=== PATIENT | female | born 2005 | race Caucasian/White ===

== ENCOUNTER 2023-05-12 19:09 | Emergency (ER) | payer BC, SELFPAY ==
[2023-05-12 19:35] VITALS: BP 122/80; PULSE 97; RESP 16; TEMP 36.2; O2SAT 99
--- NOTE | 2023-05-12 19:38 | PC.NURSE ---
Pt unable to provide urine sample at this time.
[2023-05-12 19:58] LABS: Basophils Absolute Auto 0.1 K/mm3 (0.0-0.1); Basophils Percent Auto 0.5 % (0.2-1.2); Eosinophils Percent Auto 0.1 % (0-4.4); Hematocrit 38.1 % (37.0-47.0); Immature Granulocyte Absolute 0.03 K/mm3 (0.00-0.031); Immature Granulocyte Percent A 0.3 % (0-0.5); Lymphocytes Absolute Auto 0.81 K/mm3 (0.9-3.2); Lymphocytes Percent Auto 7.9 % (18.3-44.2); Mean Corpuscular HGB Conc 31.5 g/dl (32-36); Mean Corpuscular Hemoglobin 25.3 pg (26-34); Mean Corpuscular Volume 80.4 fl (80-100); Mean Platelet Volume 9.5 fl (7.4-10.4); Monocytes Absolute Auto 0.6 K/mm3 (0.1-0.6); Monocytes Percent Auto 6.1 % (2.6-8.5); Neutrophils Absolute Auto 8.7 K/mm3 (1.3-6.7); Neutrophils Percent Auto 85.1 % (45.5-73.1); Platelet Count Result 317 k/mm3 (150-375); Red Blood Count 4.74 M/mm3 (4.2-5.4); Red Cell Distribution Width 14.1 % (11.5-14.5); White Blood Count 10.2 K/mm3 (4.5-10.0)
[2023-05-12 20:14] LABS: Alanine Aminotransferase 11 U/L (6-35); Albumin Level 4.1 g/dL (3.7-5.6); Alkaline Phosphatase 119 U/L (45-116); Anion Gap 10 mmol/L (8-16); Aspartate Amino Transferase 30 U/L (14-36); Bilirubin,Total 0.4 mg/dL (0.2-1.3); Blood Urea Nitrogen 6 mg/dL (8-21); Calcium 8.3 mg/dL (8.9-10.7); Carbon Dioxide 20 mmol/L (22-30); Chloride 107 mmol/L (98-107); Estimated CRCL calculation 151 ml/min; Estimated Glomerular Filt Rate > 60; Glucose 96 mg/dL (65-110); Lipase 53 U/L (23-300); Potassium 3.7 mmol/L (3.4-5.0); Sodium 137 mmol/L (134-143)
[2023-05-12 20:37] LABS: Influenza A QL RT-PCR Negative (Negative); Influenza B QL RT-PCR Negative (Negative); RSV RNA, RT-PCR Negative (Negative); SARS-CoV-2 RNA PCR Negative (Negative)
[2023-05-12 21:38] LABS: Appearance Urine Cloudy (Clear); Bacteria Urine Rare /hpf; Bilirubin Urine Negative (Negative); Blood Urine Negative (Negative); Color Urine Yellow (Yellow); Glucose Urine UA Negative (Negative); Ketones Urine 4+ mg/dL (Negative); Leukocyte Esterase Ur Negative LEU/UL (Negative); Nitrate Urine Negative (Negative); Non Pathogenic Casts 0-2; Protein Urine Trace mg/dL (Negative); Specific Grav Ur 1.029 (1.001-1.035); Squamous Epithelial Cell Urine Occasional /hpf (Few); WBC Urine 0-5 /hpf; pH Urine 5.5 (5.0-9.0)
[2023-05-12 21:38] LABS: Magnesium 2.2 mg/dL (1.6-2.3)
[2023-05-12 21:39] LABS: Add Urine Microscopic? YES
[2023-05-12] MEDS: SODIUM CHLORIDE 0.9% IV 1,000 ML 999 ML IV CONT (21:39)
[2023-05-12] MEDS: ONDANSETRON INJ 4 MG/2 ML VIAL IV PUSH (21:40)
--- NOTE | 2023-05-12 21:45 | ED.NAVMDI ---
HPI - Nausea/Vomiting/Diarrhea General Chief complaint: Nausea/Vomiting/Diarrhea Stated complaint: n/v/d Time Seen by Provider: 05/12/23 21:24 Source: patient Mode of arrival: ambulatory Limitations: no limitations History of Present Illness HPI Narrative: This is a 17 year old female that presents to the ER for cold symptoms present over the last couple of days. Reports rhinorrhea, congestion, sore throat, vomiting and diarrhea. Denies fever, or abdominal pain. Related Data Allergies Allergy/AdvReac Type Severity Reaction Status Date / Time No Known Allergies Allergy Verified 05/12/23 21:37 Review of Systems Review of Systems: CONSTITUTIONAL: Denies fever ENT: Reports rhinorrhea, congestion, sore throat RESPIRATORY: Denies cough or dyspnea. GASTROINTESTINAL: Reports nausea, vomiting and diarrhea. Denies abdominal pain All systems reviewed & are unremarkable except as noted in HPI and below PMFSH Past Medical History Medical History (Updated 05/13/23 @ 00:12 by Ines Mccloud PA-C) No active medical problems Social History Social History (Updated 05/12/23 @ 21:48 by Ines Mccloud PA-C) Smoking status: Never smoker Exam Narrative: GENERAL: Well-appearing, well-nourished, and in no acute distress. HEAD: Normocephalic, atraumatic. EYES: EOMI. ENT: Nares clear, no rhinorrhea or epistaxis. Mucous membranes moist. Oropharynx without tonsillar hypertrophy exudate or other lesions. Bilateral TMs pearly tatum non-bulging NECK: Supple. No adenopathy or masses. CHEST: Clear to auscultation. No respiratory distress. No wheezes rales or rhonchi HEART: Regular rate and rhythm. No murmur heard. Normal peripheral pulses. ABDOMEN: Soft, nontender, nondistended, normal active bowel sounds. EXTREMITIES: Normal range of motion. No edema. SKIN: Warm, dry, no rash. NEURO: No focal deficits. Alert and oriented x3. PSYCH: Normal mood and affect Course Course Emergency Course: Patient updated on her workup. Able to tolerate PO challenge Vital Signs Vital signs: Vital Signs Temperature 97.2 F L 05/12/23 19:35 Pulse Rate 97 05/12/23 19:35 Respiratory Rate 16 05/12/23 19:35 Blood Pressure 122/80 05/12/23 19:35 Pulse Oximetry 99 02/12/24 19:35 Oxygen Delivery Room Air 05/12/23 19:35 Temperature 97.2 F L 05/12/23 19:35 Pulse Rate 97 05/12/23 19:35 Respiratory Rate 16 05/12/23 19:35 Blood Pressure 122/80 05/12/23 19:35 Pulse Oximetry 99 05/12/23 19:35 Oxygen Delivery Room Air 05/12/23 19:35 MDM - Nausea/Vomiting/Diarrhea MDM Narrative Medical decision making narrative: Patient presents to the emergency department for viral symptoms present over the last couple of days. Reporting cough, congestion, rhinorrhea, vomiting, diarrhea. She is afebrile and nontoxic appearing. Her vitals are stable. CBC with mild leukocytosis to 10.2. Metabolic panel with mild hypocalcemia. Lipase is normal. UA without evidence of infection. Influenza, RSV, COVID, and strep screens are negative. Her abdomen is soft and nontender. She is hydrated with IV fluids and given Zofran with relief. Able to tolerate p.o. challenge. She is updated on workup. She is to follow up with her primary provider. She was given warnings to return to the ER Differential Diagnosis Differential diagnosis: Likely traveler's diarrhea, food poisoning, gastroenteritis, dehydration and other (viral syndrome) Lab Data Attestation: I reviewed the patient's lab results. 05/12/23 19:41 05/12/23 19:41 Labs: Lab Results 05/12/23 05/12/23 05/12/23 Range/Units 19:41 21:27 21:42 WBC 10.2 H (4.5-10.0) K/mm3 RBC 4.74 (4.2-5.4) M/mm3 Hgb 12.0 (12.0-15.0) g/dL Hct 38.1 (37.0-47.0) % MCV 80.4 (80-100) fl MCH 25.3 L (26-34) pg MCHC 31.5 L (32-36) g/dl RDW 14.1 (11.5-14.5) % Plt Count 317 (150-375) k/mm3 MPV 9.5 (7.4-10.4) fl Immature Gr
[2023-05-12 22:12] LABS: Strep Group A RT-PCR NOT DETECTED (Negative)
--- NOTE | 2023-05-13 00:19 | PC.NURSE ---
Patient able to keep crackers and water down with no nausea. Provider aware.
== END 2023-05-13 00:34 | disposition home or self-care (01) ==
PROVIDERS: Emergency Medicine; Emergency Provider Physician Assistant
DX: B34.9 Viral infection, unspecified (principal); E83.51 Hypocalcemia; Z20.822 Contact with and (suspected) exposure to COVID-19
CPT/HCPCS: 36415; 80053; 81001; 81025; 83690; 83735; 85025; 87637; 87651; 96361; 96374; 99284; J2405; J7030